=== PATIENT | male | born 1995 | race Two or more races ===

== ENCOUNTER 2018-11-20 07:23 | Outpatient (CLI) | payer OTHER | END 2018-11-20 07:25 | disposition home or self-care (01) | LOC: SONOGRAMA 07:23 | DX: R94.5 Abnormal results of liver function studies (principal) ==

== ENCOUNTER 2020-12-14 16:03 | Emergency (ER) | payer OTHER ==
[~2020-12-14] VITALS: Ht 165.1 cm; Wt 97.5 kg
== END 2020-12-14 19:43 | disposition home or self-care (01) ==
LOC: ER 16:03
DX: M54.5 Low back pain (principal); Z76.5 Malingerer [conscious simulation]

== ENCOUNTER 2023-11-22 23:13 | Emergency (ER) | payer OTHER ==
[~2023-11-22] VITALS: Ht 167.6 cm; Wt 83.9 kg
[2023-11-23] MEDS ORDERED: ZITHROMAX500 MG PO (02:41)
== END 2023-11-23 02:44 | disposition home or self-care (01) ==
LOC: ER 23:15
DX: R53.81 Other malaise (principal); J02.9 Acute pharyngitis, unspecified; Z20.822 Contact with and (suspected) exposure to COVID-19

== ENCOUNTER 2023-11-27 23:06 | Emergency (ER) | payer OTHER ==
[~2023-11-27] VITALS: Ht 170.2 cm; Wt 83.9 kg
[~2023-11-27 23:06] MED LIST: ZITHROMAX500 MG PO
[2023-11-28 03:12] LABS: HEMATOCRIT 45.1 % (39.0-48.0); HEMOGLOBIN 15.6 g/dL (13-16.00); MEAN CELL VOLUME 87.8 fL (80.0-100.00); MEAN CORPUSCULAR HEMOGLOBIN 30.5 pg (27.00-32.0); MEAN CORPUSCULAR HGB CONC 34.7 g/dl (32.0-36.0); PLATELET COUNT 266 K/uL (150-450); RED BLOOD COUNT 5.14 M/uL (4.00-6.00); RED CELL DISTRIBUTION WIDTH 12.7 % (11.5-14.5)
== END 2023-11-28 04:12 | disposition home or self-care (01) ==
LOC: ER 23:07
DX: J03.90 Acute tonsillitis, unspecified (principal)

== ENCOUNTER 2023-11-28 17:58 | Emergency (ER) | payer OTHER ==
[~2023-11-28] VITALS: Ht 170.2 cm; Wt 83.9 kg
== END 2023-11-28 20:13 | disposition home or self-care (01) ==
LOC: ER 17:59
DX: R21 Rash and other nonspecific skin eruption (principal); J45.909 Unspecified asthma, uncomplicated
CPT/HCPCS: 36415; 96372; 99284; J0696; J1200

== ENCOUNTER 2024-02-14 12:55 | Emergency (ER) | payer OTHER ==
[~2024-02-14] VITALS: Ht 170.2 cm; Wt 83.9 kg
[2024-02-14] MEDS ORDERED: KETOROLAC TROMETHAMINE 30 MG VIAL IM STA (17:25)
== END 2024-02-14 17:45 | disposition home or self-care (01) ==
LOC: ER 12:55
DX: M54.9 Dorsalgia, unspecified (principal)
CPT/HCPCS: 96372; 99282; J1885